=== PATIENT | male | born 1965 | race Hispanic/Latino ===

== ENCOUNTER 2018-03-16 19:21 | Emergency (ER) | payer SELFPAY ==
[2018-03-16] MEDS ORDERED: Fentanyl 100 MCG/2 ML VIAL ONE (19:24)
[2018-03-16] MEDS ORDERED: CEFAZOLIN 1 GM VIAL ONE (19:24)
[2018-03-16] MEDS ORDERED: Adacel (T-DAP) 0.5 ML VIAL ONE (19:44)
[2018-03-16] MEDS ORDERED: Bacitracin Zinc 1 Packet ONE (20:03)
== END 2018-03-16 20:20 | disposition home or self-care (01) ==
LOC: ERS 19:21
DX: S51.812A Laceration without foreign body of left forearm, initial encounter (principal); W25.XXXA Contact with sharp glass, initial encounter
CPT/HCPCS: 12004; 90471; 90715; 96374; 96375; J0690; J3010

== ENCOUNTER 2018-03-18 19:24 | Emergency (ER) | payer SELFPAY | END 2018-03-18 20:11 | disposition home or self-care (01) | LOC: ERS 19:24 | DX: S51.812D Laceration without foreign body of left forearm, subsequent encounter (principal) | CPT/HCPCS: 99282 ==

== ENCOUNTER 2018-03-25 17:51 | Emergency (ER) | payer SELFPAY | END 2018-03-25 18:34 | disposition home or self-care (01) | LOC: ERS 17:51 | DX: S51.812D Laceration without foreign body of left forearm, subsequent encounter (principal); L03.114 Cellulitis of left upper limb; W25.XXXD Contact with sharp glass, subsequent encounter | CPT/HCPCS: 99282 ==

== ENCOUNTER 2018-10-22 07:17 | Emergency (ER) | payer SELFPAY ==
[2018-10-22] MEDS ORDERED: Mag-Al 1200 mg/1200 mg/30 ML UDCUP ONE (07:29)
[2018-10-22] MEDS ORDERED: Lidocaine Viscous Sol 2% 15 ml UD Cup ONE (07:29)
[2018-10-22 07:53] LABS: #Eosinphils 0.2 thou/uL (0.0-0.7); #Lymphocytes 1.3 thou/uL (1.20-3.40); #Monocytes 0.4 thou/uL (0.11-0.59); #Neutrophils 3.2 thou/uL (1.40-6.50); %Basophils 0.4 % (0.0-1.0); %Eosinophils 3.3 % (0.0-10.0); %Lymphocytes 25.8 % (21.0-51.0); %Monocytes 8.4 % (0.0-10.0); %Neutrophils 62.2 % (42.0-75.0); Hemoglobin 16.4 g/dL (14.0-18.0); Mean Corpuscular HGB CONC 34.6 g/dL (32.0-36.0); Mean Corpuscular Hemoglobin 30.8 pg (27.0-31.0); Mean Corpuscular Volume 88.8 fL (78.0-98.0); Platelet Count 149 thou/uL (130-400); RBC Distribution Width 12.3 % (11.5-14.5); Red Blood Cell (RBC) Count 5.32 mill/uL (4.70-6.10); White Blood Cell (WBC) Count 5.2 thou/uL (4.8-10.8)
[2018-10-22 08:31] LABS: ALT (SGPT) 74 U/L (8-55); AST (SGOT) 36 U/L (5-34); Albumin 4.1 g/dL (3.5-5.0); Alkaline Phosphatase 64 U/L (40-150); Anion Gap 10 mmol/L (10-20); BUN (Urea Nitrogen) 10 mg/dL (8.4-25.7); Bilirubin, Total 0.9 mg/dL (0.2-1.2); Calc. Creatinine Clearance 0 mL/min (70-130); Calcium 8.7 mg/dL (7.8-10.44); Carbon Dioxide 29 mmol/L (22-29); Chloride 101 mmol/L (98-107); Estimated GFR-MDRD 85; Globulin 2.7 g/dL (2.4-3.5); Glucose 115 mg/dL (70-105); Lipase 35 U/L (8-78); Potassium 3.8 mmol/L (3.5-5.1); Protein, Total 6.8 g/dL (6.0-8.3); Sodium 136 mmol/L (136-145)
== END 2018-10-22 08:40 | disposition home or self-care (01) ==
LOC: ERS 07:17
DX: K29.70 Gastritis, unspecified, without bleeding (principal)
CPT/HCPCS: 36415; 80053; 83690; 85025; 99284

== ENCOUNTER 2019-08-08 03:30 | Emergency (ER) | payer SELFPAY ==
[2019-08-08] MEDS ORDERED: Metoclopramide HCl 10 MG/2 ML VIAL ONE (03:46)
[2019-08-08] MEDS ORDERED: diphenhydrAMINE 50 MG/ML VIAL ONE (03:46)
[2019-08-08] MEDS ORDERED: Ketorolac Tromethamine 30 MG/ML VIAL ONE (03:46)
== END 2019-08-08 05:45 | disposition home or self-care (01) ==
LOC: ERS 03:30
DX: R51 Headache (principal)
CPT/HCPCS: 96365; 96375; J1200; J1885; J2765